=== PATIENT | female | born 1985 | race Caucasian/White ===

== ENCOUNTER 2020-12-10 14:34 | Emergency (ER) | payer OTHER ==
[~2020-12-10 14:34] MED LIST: [UNRECOGNIZED DRUG - CODE]; [UNRECOGNIZED DRUG - CODE] PO
--- NOTE | 2020-12-10 15:00 | NUR ---
pt left without being seen. pt said she has an appointment with her MD bambi.
== END 2020-12-10 15:00 | disposition left against medical advice (07) ==
LOC: MED 14:34
DX: Z48.00 Encounter for change or removal of nonsurgical wound dressing (principal); Z53.21 Procedure and treatment not carried out due to patient leaving prior to being seen by health care provider

== ENCOUNTER 2021-01-31 19:16 | Emergency (ER) | payer OTHER ==
[~2021-01-31] VITALS: Ht 121.9 cm; Wt 28.6 kg
[2021-01-31 19:21] VITALS: BP 128/76
[2021-01-31] MEDS ORDERED: CLIN75PD6 PO (20:07)
[2021-01-31] MEDS ORDERED: IBUP100S26 PO (20:07)
[2021-01-31] MEDS ORDERED: KEFSUS PO (20:07)
[2021-01-31 20:16] VITALS: BP 128/76
== END 2021-01-31 20:13 | disposition home or self-care (01) ==
LOC: MED 19:16
DX: L03.115 Cellulitis of right lower limb (principal); L02.415 Cutaneous abscess of right lower limb; Z79.899 Other long term (current) drug therapy
CPT/HCPCS: 99284